=== PATIENT | female | born 1990 | race Caucasian/White ===

== ENCOUNTER 2020-04-13 12:33 | Day surgery (SDC) | payer MEDICAID ==
[2020-04-08 15:27] LABS: BASOPHILS % (AUTO) 0.5 % (0-1); EOSINOPHILS # (AUTO) 0.1 X10'3 (0-0.9); EOSINOPHILS % (AUTO) 1.5 % (0-6); LYMPHOCYTES # (AUTO) 1.7 X10'3 (1.1-4.8); MEAN CORPUSCULAR HEMOGLOBIN 31.8 PG (27.0-31.0); MEAN CORPUSCULAR HGB CONC 34.9 g/dL (33.0-36.5); MEAN CORPUSCULAR VOLUME 91.1 FL (78-98); MEAN PLATELET VOLUME 7.4 FL (7.4-10.4); MONOCYTES # (AUTO) 0.3 X10'3 (0-0.9); MONOCYTES % (AUTO) 7.3 % (2-12); NEUTROPHILS # (AUTO) 2.4 X10'3 (1.8-7.7); NEUTROPHILS % (AUTO) 53.7 % (42-75); PRE OP HEMATOCRIT 39.9 % (35.0-45.0); PRE OP HEMOGLOBIN 13.9 g/dL (12.0-16.0); PRE OP PLATELET COUNT 282 X10'3 (140-440); RED BLOOD COUNT 4.38 X10'6 (4.20-5.60); RED CELL DISTRIBUTION WIDTH 14.5 % (11.5-14.5)
[2020-04-08 15:48] LABS: HCG SERUM QL NEGATIVE
[2020-04-08 15:54] LABS: ALBUMIN/GLOBULIN RATIO 1.1 (1.1-1.5); ALKALINE PHOSPHATASE 85 IU/L (46-116); BLOOD UREA NITROGEN 15 MG/DL (7-18); BUN/CREATININE RATIO 23.1 (6.6-38.0); CALCIUM 8.8 MG/DL (8.5-10.1); CHLORIDE 106 MMOL/L (99-107); CREATININE 0.65 MG/DL (0.40-0.90); PRE OP ALT 25 U/L (30-65); PRE OP ANION GAP 7 (8-16); PRE OP AST 12 U/L (10-37); PRE OP BILIRUB, TOTAL 0.3 MG/DL (0.0-1.0); PRE OP GLUCOSE 95 MG/DL (70-104); PRE OP POTASSIUM 3.9 MMOL/L (3.4-5.1); PRE OP SODIUM 143 MMOL/L (135-145); TOTAL CARBON DIOXIDE 29.9 MMOL/L (24-32); TOTAL PROTEIN 7.5 G/DL (6.4-8.2); eGFR > 90 ML/MIN
[~2020-04-13] VITALS: Ht 167.6 cm; Wt 77.6 kg
[2020-04-13] VITALS (11 sets, daily range): BP systolic 73–115; BP diastolic 54–71
[~2020-04-13 12:33] MED LIST: AMIT-189 PO; ASPI-1265 PO; FERR-119 PO; MAGN500T2 PO; PREN1TAB79 PO; famotidine 20mg tablet PO ONE; ringers solution, lacted 1,000 ML IV SCH
[2020-04-13] MEDS ORDERED: BUPIVAcaine/PF 2.5 mg/ml (0.25%) 30ml vial ONE (14:19)
[2020-04-13] MEDS ORDERED: epiNEPHrine 1 mg/ml inj ONE (14:20)
[2020-04-13] MEDS ORDERED: hydrALAZINE 20mg/ml inj. IV PRN (14:25)
[2020-04-13] MEDS ORDERED: ringers solution, lacted 1,000 ML IV SCH (14:25)
[2020-04-13] MEDS ORDERED: ketorolac trometh. 30mg/ml inj. IV ONE (14:25)
[2020-04-13] MEDS ORDERED: ondansetron/PF 4mg/2ml inj IV PRN (14:25)
[2020-04-13] MEDS ORDERED: proCHLORperazine 10 MG/2 ml inj IV PRN (14:25)
[2020-04-13] MEDS ORDERED: acetaminophen 1,000mg/100ml IV 100 ML IV PRN (14:25)
[2020-04-13] MEDS ORDERED: morphine 2 MG/ML inj. syringe IV PRN (14:25)
[2020-04-13] MEDS ORDERED: labetalol 20mg/4ml (5mg/ml) syringe IV PRN (14:25)
[2020-04-13] MEDS ORDERED: meperidine/PF 25mg/ml syringe IV PRN ×3 (14:25)
[2020-04-13] MEDS ORDERED: morphine 4 MG/ML inj SYRINge IV PRN (14:25)
[2020-04-13 15:30] LABS: HCG SERUM QL NEGATIVE
[2020-04-13] MEDS ORDERED: neostigmine methylsulfate 1 MG/ML 10ml vial ONE (15:32)
[2020-04-13] MEDS ORDERED: glycopyrrolate 0.2mg/ml inj ONE (15:32)
[2020-04-13] MEDS ORDERED: sevoflurane 250ml liquid IH ONE (15:32)
[2020-04-13] MEDS ORDERED: midazolam 1 mg/ML 2ml injection ONE (15:34)
[2020-04-13] MEDS ORDERED: fentaNYL/PF 50MCG/1 ML 2ML syringe ONE (15:34)
[2020-04-13] MEDS ORDERED: LIDOcaine 2% 5ml jelly ONE (15:38)
[2020-04-13] MEDS ORDERED: ondansetron/PF 4mg/2ml inj ONE (15:52)
[2020-04-13] MEDS ORDERED: dexamethasone sod phosphate 4mg/ml inj. ONE (15:52)
[2020-04-13] MEDS ORDERED: LIDOcaine 2% (20mg/ml) 5ml vial ONE (15:52)
[2020-04-13] MEDS ORDERED: propofol inj 20 ML IV ONE (15:52)
[2020-04-13] MEDS ORDERED: rocuronium 10mg/ml inj IV ONE (15:52)
[2020-04-13] MEDS ORDERED: ceFOXitin 1000 MG inj ONE ×2 (16:00)
--- NOTE | 2020-04-13 16:23 | NUR ---
Received from OR via [facility], accompanied by Anesthesiologist DR GUTIERREZ and report given by Anesthesiologist. PT DROWSY, DENIES PAIN, ABDOMEN W/2 SMALL LAP SITES W/DERMABOND CDI. Addendum: 04/13/20 at 1850 by Thu Jimenez RN Amended: Links added.
--- NOTE | 2020-04-13 18:13 | NUR ---
PT UP AND ABLE TO AMBULATE SAFELY, PAIN IMPROVED. D/C INSTRUCTIONS GIVEN AND GONE OVER W/PT WHO VERBALIZED UNDERSTANDING. PT D/CD TO HOME VIA W/C TO PRIVATE VEHICLE W/O INCIDENT. Addendum: 04/13/20 at 1907 by Thu Jimenez RN Amended: Links added.
== END 2020-04-13 18:13 | disposition home or self-care (01) ==
LOC: PAS 12:33
PROVIDERS: ATTEND Specialist
DX: Z30.2 Encounter for sterilization (principal); D64.9 Anemia, unspecified; F12.90 Cannabis use, unspecified, uncomplicated; G43.909 Migraine, unspecified, not intractable, without status migrainosus; Z86.16 Personal history of COVID-19; Z79.82 Long term (current) use of aspirin; Z79.899 Other long term (current) drug therapy; Z86.73 Personal history of transient ischemic attack (TIA), and cerebral infarction without residual deficits; Z98.890 Other specified postprocedural states
CPT/HCPCS: 36415; 58670; 76937; 80053; 82948; 84703; 85025; J0131; J0171; J0360; J0694; J1100; J1885; J2001; J2175; J2250; J2405; J2704; J2710; J3010; J3490; 87635; A4618; J7120

== ENCOUNTER 2020-07-09 06:35 | Day surgery (SDC) | payer MEDICAID ==
[~2020-07-09] VITALS: Ht 167.6 cm; Wt 76.1 kg
[~2020-07-09 06:35] MED LIST changes: -famotidine 20mg tablet PO ONE; -ringers solution, lacted 1,000 ML IV SCH
[2020-07-09 07:06] VITALS: BP 107/65
[2020-07-09 08:49] VITALS: BP 101/59
[2020-07-09 09:05] VITALS: BP 107/65
[2020-07-09 09:20] VITALS: BP 115/66
[2020-07-09 09:35] VITALS: BP 116/63
[2020-07-09 11:46] VITALS: BP 103/59
== END 2020-07-09 09:55 | disposition home or self-care (01) ==
LOC: SSTAY O 06:35
PROVIDERS: ATTEND Radiology Vascular & Interventional Radiology
DX: R59.0 Localized enlarged lymph nodes (principal); E55.9 Vitamin D deficiency, unspecified; Z98.51 Tubal ligation status; Z98.890 Other specified postprocedural states; Z79.899 Other long term (current) drug therapy
CPT/HCPCS: 10005

== ENCOUNTER 2023-01-19 08:09 | Outpatient (CLI) | payer MEDICAID ==
[~2023-01-19 08:09] MED LIST changes: -AMIT-189 PO; +AMIT50TA15 PO; -ASPI-1265 PO; -MAGN500T2 PO; -PREN1TAB79 PO
== END 2023-01-19 23:59 | disposition home or self-care (01) ==
LOC: RAD 08:09
PROVIDERS: ATTEND Nurse Practitioner Family
DX: R51.9 Headache, unspecified (principal); Q21.12 Patent foramen ovale; Z86.73 Personal history of transient ischemic attack (TIA), and cerebral infarction without residual deficits
CPT/HCPCS: 95819

== ENCOUNTER 2023-09-30 09:33 | Emergency (ER) | payer MEDICAID ==
[~2023-09-30] VITALS: Ht 165.1 cm; Wt 70.0 kg
[2023-09-30 10:36] VITALS: BP 123/74; PULSE 77; RESP 16; TEMP 98.5; O2SAT 99
== END 2023-09-30 10:40 | disposition home or self-care (01) ==
LOC: ER 09:34
DX: S62.304A Unspecified fracture of fourth metacarpal bone, right hand, initial encounter for closed fracture (principal); Z79.899 Other long term (current) drug therapy; Y04.0XXA Assault by unarmed brawl or fight, initial encounter; Y93.89 Activity, other specified; Y92.89 Other specified places as the place of occurrence of the external cause; Y99.8 Other external cause status
CPT/HCPCS: 29125; 73130; 99283; A6446; A6449